=== PATIENT | male | born 1980 | race African-American/Black ===

== ENCOUNTER 2025-09-28 14:41 | Inpatient (IN) | payer OTHER ==
[2025-09-28 15:09] LABS: #Basophils Less than 0.03 10x3/uL (0.0-0.2); #Eosinophils 0.12 10x3/uL (0.0-0.7); #Monocytes 0.86 10x3/uL (0.11-0.59); #Neutrophils 4.22 10x3/uL (1.40-6.50); %Basophils 0.3 % (0.0-1.0); %Eosinophils 1.7 % (0.0-10.0); %Lymphocytes 24.7 % (21.0-51.0); %Monocytes 12.4 % (0.0-10.0); %Neutrophils 60.6 % (42.0-75.0); Hematocrit 40.5 % (42.0-52.0); Hemoglobin 12.4 g/dL (14.0-18.0); Mean Corpuscular Hemoglobin 22.3 pg (27.0-31.0); Mean Corpuscular Volume 72.8 fL (78.0-98.0); Platelet Count 170 10x3/uL (130-400); Red Blood Cell (RBC) Count 5.56 mill/uL (4.70-6.10); White Blood Cell (WBC) Count 6.96 10x3/uL (4.8-10.8)
[2025-09-28 15:31] LABS: ALT (SGPT) 95 U/L (Less than 45); AST (SGOT) 103 U/L (11-34); Albumin 3.9 g/dL (3.1-4.5); Alkaline Phosphatase 93 U/L (40-110); Anion Gap 15 mmol/L (10-20); BUN (Urea Nitrogen) 18 mg/dL (8.9-20.6); Bilirubin, Total 1.0 mg/dL (0.3-1.2); Calc. Creatinine Clearance 0 mL/min (70-130); Calcium 9.0 mg/dL (7.8-10.44); Carbon Dioxide 22 mmol/L (22-29); Chloride 104 mmol/L (98-107); Globulin 3.6 g/dL (2.4-3.5); Glucose 92 mg/dL (70-105); Potassium 4.8 mmol/L (3.5-5.1); Sodium 136 mmol/L (136-145)
[2025-09-28 15:36] LABS: Macrocytosis SLIGHT = 6-15 cells HPF (0-5); Ovalocytes SLIGHT = 2-5 cells HPF (0-1); Platelet Adequacy Comment Platelets Normal
[2025-09-28] MEDS ORDERED: Nitroglycerin 2% Ointment 1 INCH/1 GM Packet TOP PRN (17:37)
[2025-09-28 22:49] VITALS: BMI 25.7
[2025-09-29] MEDS: Pantoprazole 40 MG DR.TAB PO SCH ×2 (04:10→07:32)
[2025-09-29] MEDS: Aspirin Chewable 81 MG TAB PO SCH (07:32)
[2025-09-29] MEDS: Divalproex Sodium 250 MG ER.TAB PO SCH (07:32)
[2025-09-29] MEDS: Acetaminophen 325 MG TAB PO PRN (14:46)
[2025-09-30] MEDS: Enoxaparin 40 MG (0.4 mL) SYRINGE SC SCH (08:08)
[2025-10-01 19:58] VITALS: BP 116/77; TEMP 97.8
== END 2025-10-01 21:27 | DRG 313 ==
LOC: ERS 14:41 → EEVIPCON 14:41 → OBS 17:36 → OBSVTOIN 09-29 14:13
PROVIDERS: ADMIT Internal Medicine; ATTEND Internal Medicine
DX: R07.9 Chest pain, unspecified (principal); I10 Essential (primary) hypertension; I45.19 Other right bundle-branch block; R42 Dizziness and giddiness; I25.10 Atherosclerotic heart disease of native coronary artery without angina pectoris; G40.909 Epilepsy, unspecified, not intractable, without status epilepticus; Z87.891 Personal history of nicotine dependence
CPT/HCPCS: 36415; 70450; 71045; 72125; 78452; 80053; 84484; 85025; 93005; 93017; 93306; 94760; A9502; J1650; J2785